=== PATIENT | female | born 1960 | race Caucasian/White ===

== ENCOUNTER 2021-01-08 18:13 | Emergency (ER) | payer BC ==
[2021-01-08 18:20] VITALS: BP 113/76; PULSE 69; RESP 18; TEMP 98.6
--- NOTE | 2021-01-08 19:31 | ED ---
Lower Extremity Injury HPI - General Chief Complaint: Extremity Injury, Lower Stated Complaint: lt foot injury Time Seen by Provider: 01/08/21 19:04 Source: patient Mode of arrival: ambulatory Limitations: no limitations - History of Present Illness Initial Comments: 60-year-old female presents to emergency Department with a chief complaint of left foot injury. She states this occurred about 2 hours prior to arrival. Patient reports she dropped a heavy object on the dorsal aspect to left foot. She states now there has been some swelling and ecchymosis to the region but denies any erythema. States she has decreased sensation in the left leg from prior spinal surgery so he states the pain is rather minimal. She states it seems to be exacerbated with weightbearing or palpation to the region. Denies taking medication to alleviate the symptoms. - Related Data Allergies Allergy/AdvReac Type Severity Reaction Status Date / Time No Known Allergies Allergy Verified 01/08/21 18:20 Review of Systems ROS Statement: Those systems with pertinent positive or pertinent negative responses have been documented in the HPI. ROS Other: All systems not noted in ROS Statement are negative. Past Medical History Past Medical History: No Reported History History of Any Multi-Drug Resistant Organisms: None Reported Past Surgical History: Back Surgery Past Psychological History: No Psychological Hx Reported Smoking Status: Never smoker Past Alcohol Use History: None Reported Past Drug Use History: None Reported General Exam Limitations: no limitations General appearance: alert, in no apparent distress Head exam: Present: atraumatic, normocephalic, normal inspection Eye exam: Present: normal appearance, PERRL Pupils: Present: normal accommodation ENT exam: Present: normal exam, normal oropharynx, mucous membranes moist Neck exam: Present: normal inspection, full ROM. Absent: tenderness, lymphadenopathy Respiratory exam: Present: normal lung sounds bilaterally. Absent: respiratory distress Cardiovascular Exam: Present: regular rate, normal rhythm, normal heart sounds. Absent: systolic murmur Extremities exam: Present: full ROM (Full range of motion of left foot and ankle), tenderness (Midfoot tenderness but no fifth metatarsal tenderness. No malleolar tenderness), normal capillary refill, other (Palpable DP and PT bilaterally). Absent: normal inspection (Swelling and ecchymosis on the dorsal aspect of the left foot), pedal edema, joint swelling, calf tenderness Back exam: Present: normal inspection, full ROM. Absent: tenderness Neurological exam: Present: alert, oriented X3 Psychiatric exam: Present: normal affect, normal mood Skin exam: Present: warm, dry, intact, normal color Course Vital Signs 01/08/21 18:17 Temperature 98.6 F Pulse Rate 69 Respiratory 18 Rate Blood Pressure 113/76 O2 Sat by Pulse 98 Oximetry Medical Decision Making - Medical Decision Making 60-year-old female presents to emergency Department with a chief complaint of left foot injury. On physical examination, she is neurovascularly intact but there is swelling and ecchymosis in the midfoot of the left foot. X-ray shows soft tissue swelling but no acute findings. I advised the patient to conservative management. Mother to follow-up with imcu specialist the symptoms do not improve. Return primers were thoroughly discussed the patient was understanding and agreeable. Case discussed with physician. Disposition Clinical Impression: Injury of left foot, Contusion of foot, left Disposition: HOME SELF-CARE Condition: Stable Instructions (If sedation given, give patient instructions): Foot Contusion (ED) Additional Instructions: Please return to the Emergency Department if symptoms worsen or any other concerns. Is patient prescribed a controlled substance at d/c from ED?: No Referrals: Nonstaff,Physician [Primary Care Provider] - 1-2 days Time of Disposition: 20:20
--- NOTE | 2021-01-08 19:57 | XR ---
EXAMINATION TYPE: XR foot complete LT DATE OF EXAM: 01/08/2021 COMPARISON: NONE HISTORY: Foot pain TECHNIQUE: 3 views FINDINGS: I see no fracture nor dislocation. Joint spaces are fairly normal. There is soft tissue swe lling of the forefoot. There is plantar calcaneal spurring. IMPRESSION: Soft tissue swelling. No fracture.
== END 2021-01-08 20:26 | disposition home or self-care (01) ==
LOC: EC 18:13
DX: S90.32XA Contusion of left foot, initial encounter (principal); W20.8XXA Other cause of strike by thrown, projected or falling object, initial encounter
CPT/HCPCS: 99284